=== PATIENT | female | born 1940 | race Two or more races ===

== ENCOUNTER → 2018-06-09 | Outpatient (CLI) | payer MEDICARE ==
--- NOTE | 2018-06-13 08:28 | Diagnostic Imaging Report ---
#[id number] - [id number] #BILATERAL DIGITAL SCREENING MAMMOGRAM WITH CAD: 06/09/2018 CLINICAL: Routine screening. Comparison is made to exam dated: 03/09/2017 mammogram - [facility]. Current study contains 5 films. There are scattered fibroglandular elements in both breasts. Current study was also evaluated with a Computer Aided Detection (CAD) system. There is a coarse calcification in the left breast middle depth medial region seen on the craniocaudal view only that appears new compared to the recent prior study. Diffuse vascular calcification is present. Benign appearing calcification in both breasts again noted. No other significant masses, calcifications, or other findings are seen in either breast. IMPRESSION: INCOMPLETE: NEEDS ADDITIONAL IMAGING EVALUATION The coarse calcification in the left breast is indeterminate. Spot magnification views are recommended. The patient will be contacted by the Mammography Department to schedule this appointment. Emerson Pearson Jr., D.O. cw/:06/12/2018 08:12:16 Auctioneer Art: Krystal HILL(Marleen)(Manjit), [facility] letter sent: Additional Imaging Needed Mammogram BI-RADS: 0 Indeterminate
== END ==
LOC: MAMMO 14:46
PROVIDERS: ATTEND Internal Medicine
DX: Z12.31 Encounter for screening mammogram for malignant neoplasm of breast (principal); E11.51 Type 2 diabetes mellitus with diabetic peripheral angiopathy without gangrene
CPT/HCPCS: 77067

== ENCOUNTER → 2018-06-19 | Outpatient (CLI) | payer MEDICARE ==
--- NOTE | 2018-06-20 08:49 | Diagnostic Imaging Report ---
#[id number] - [id number] #UNILATERAL LEFT DIGITAL DIAGNOSTIC MAMMOGRAM WITH SPOT COMPRESSION AND MAGNIFICATION: 06/19/2018 Comparison is made to exams dated: 06/09/2018 mammogram and 03/09/2017 mammogram - [facility]. Current study contains 4 films. There are scattered fibroglandular elements in the left breast. The amorphous dense calcification is probably benign. Scattered benign vascular calcification is present. No significant masses or other findings are seen in the breast. IMPRESSION: PROBABLY BENIGN A follow-up ultrasound in 6 months is recommended to demonstrate stability. The patient and her son where notified of these findings at the time of interpretation. Emerson Pearson Jr., D.O. cw/:06/19/2018 15:50:48 [employer] Supervisor: Krystal HESS)(M), [facility] letter sent: Followup Recommended Mammogram BI-RADS: 3 Probably benign
== END ==
LOC: MAMMO 08:50
PROVIDERS: ATTEND Internal Medicine
DX: N64.59 Other signs and symptoms in breast (principal)

== ENCOUNTER → 2020-10-07 | Outpatient (CLI) | payer MEDICARE | LOC: MAMMO 12:41 | PROVIDERS: ATTEND Internal Medicine | DX: Z12.31 Encounter for screening mammogram for malignant neoplasm of breast (principal) | CPT/HCPCS: 77067 ==

== ENCOUNTER → 2022-10-05 | Outpatient (CLI) | payer MEDICARE | LOC: MAMMO 11:26 | PROVIDERS: ATTEND Internal Medicine | DX: Z12.31 Encounter for screening mammogram for malignant neoplasm of breast (principal) | CPT/HCPCS: 77067 ==